=== PATIENT | female | born 1955 | race Caucasian/White ===

== ENCOUNTER → 2019-03-22 | Outpatient (REF) | payer OTHER ==
[2019-03-22 14:19] LABS: BLOOD UREA NITROGEN 24 MG/DL (7-18); CREATININE FOR GFR 0.71 MG/DL (0.55-1.30); GLOMERULAR FILTRATION RATE > 60.0 (>45)
== END ==
LOC: M LAB REF 12:57
PROVIDERS: ATTEND Internal Medicine Pulmonary Disease
DX: Z01.812 Encounter for preprocedural laboratory examination (principal); R91.8 Other nonspecific abnormal finding of lung field

== ENCOUNTER → 2019-04-04 | Outpatient (CLI) | payer OTHER, MEDICARE ==
[~2019-04-04] MED LIST: ISOVUE-370 76% 100ML VIAL (Q9967) As Ordered ONE
--- NOTE | 2019-04-04 14:27 | REP ---
REASON: Followup nodular density seen on the prior plain film 03/21/2019 in the inferior retrosternal clear space and additional 1.2 cm size left upper lobe nodule. CONTRAST: 100 mL Isovue 370. There are multiple nonenlarged mediastinal and hilar lymph nodes. There are no pleural or pericardial effusions. The imaged upper abdomen and imaged osseous structures are within normal limits. Evaluation of the lung pederson show evidence of heavy biapical pleuroparenchymal scarring. In the apical posterior segment of the left upper lobe abutting the superior most aspect of major fissure there is an irregular density measuring approximately 1.4 cm. There are heavy reticulonodular densities in the left lower lobe. There is mild cylindrical bronchiectasis. IMPRESSION: 1. Heavy biapical pleuroparenchymal scarring is suspected, however, there are no priors for comparison. Three month followup chest CT is recommended. 2. Heavy reticulonodular densities left lower lobe of uncertain etiology. This needs to be correlated clinically and followed in [address] 3. Cylindrical bronchiectasis. 4. Consider pulmonary consultation. 5. Other findings as described above. Electronically Signed by Eb Moore DO 04/04/2019 04:57 P
== END ==
LOC: M RAD 10:29
PROVIDERS: ATTEND Internal Medicine Pulmonary Disease
DX: R91.8 Other nonspecific abnormal finding of lung field (principal)
CPT/HCPCS: 71260; Q9967

== ENCOUNTER → 2019-10-05 | Outpatient (CLI) | payer OTHER, MEDICARE ==
--- NOTE | 2019-10-05 14:25 | REP ---
Clinical: Persistent asthma. Technique: Axial noncontrast images from the thoracic inlet to the upper abdomen with coronal and sagittal re-formations. Comparison: 04/04/2019. Findings: Biapical and posterior subpleural scarring remains stable. No acute consolidation. Previous left lower lobe infiltrate has resolved. No nodule or mass lesion. No effusion. No pneumothorax. Tracheobronchial tree is patent. Subcentimeter mediastinal lymph nodes are nonspecific and unchanged. Evaluation of the mediastinum demonstrates normal stable thoracic aorta, pulmonary vasculature and heart/pericardium. No pericardial effusion or cardiomegaly. A small hiatal hernia at the gastroesophageal junction is noted. Musculoskeletal structures are intact. Impression: Stable biapical and posterior pleural scarring. No acute mediastinal or pleuroparenchymal process. Previous left lower lobe infiltrate resolved. Electronically Signed by Aaron Ramírez MD 10/05/2019 02:16 P
== END ==
LOC: M RAD 13:17
PROVIDERS: ATTEND Internal Medicine Pulmonary Disease
DX: J45.40 Moderate persistent asthma, uncomplicated (principal)

== ENCOUNTER → 2021-07-17 | Outpatient (REF) | payer MEDICARE, OTHER | LOC: M LAB REF 12:53 | PROVIDERS: ATTEND Pediatrics | DX: J06.9 Acute upper respiratory infection, unspecified (principal) ==

== ENCOUNTER → 2021-08-14 | Outpatient (REF) | payer MEDICARE, OTHER ==
[2021-08-14 11:20] LABS: RSV AMPLIFICATION NEGATIVE (NEGATIVE)
== END ==
LOC: M LAB REF 09:55
PROVIDERS: ATTEND Pediatrics
DX: Z20.822 Contact with and (suspected) exposure to COVID-19 (principal)

== ENCOUNTER → 2021-11-17 | Outpatient (REF) | payer MEDICARE, OTHER | LOC: M LAB REF 09:18 | PROVIDERS: ATTEND Pediatrics | DX: Z20.822 Contact with and (suspected) exposure to COVID-19 (principal) ==

== ENCOUNTER → 2021-12-10 | Outpatient (REF) | payer MEDICARE, OTHER | LOC: M LAB REF 09:43 | PROVIDERS: ATTEND Pediatrics | DX: Z20.822 Contact with and (suspected) exposure to COVID-19 (principal); Z11.52 Encounter for screening for COVID-19 | CPT/HCPCS: 87633; U0003 ==

== ENCOUNTER → 2022-05-18 | Outpatient (CLI) | payer MEDICARE, OTHER | LOC: M RAD 08:21 | PROVIDERS: ATTEND Physician Assistant | DX: R09.89 Other specified symptoms and signs involving the circulatory and respiratory systems (principal) ==

== ENCOUNTER → 2023-09-27 | Outpatient (CLI) | payer MEDICARE, OTHER | LOC: M WHC 12:37 | PROVIDERS: ATTEND Nurse Practitioner Family | DX: Z12.31 Encounter for screening mammogram for malignant neoplasm of breast (principal) ==

== ENCOUNTER → 2024-10-10 | Outpatient (REF) | payer MEDICARE, OTHER | LOC: M LAB REF 12:51 | PROVIDERS: ATTEND Pediatrics | DX: R50.9 Fever, unspecified (principal) ==

== ENCOUNTER → 2024-11-27 | Outpatient (CLI) | payer MEDICARE, OTHER | LOC: M PLAIMG 11:05 | PROVIDERS: ATTEND Internal Medicine Pulmonary Disease | DX: J45.40 Moderate persistent asthma, uncomplicated (principal) ==